=== PATIENT | female | born 1975 | race Hispanic/Latino ===

== ENCOUNTER 2025-06-09 14:51 | Emergency (ER) | payer SELFPAY ==
[~2025-06-09] VITALS: Ht 157.5 cm; Wt 95.8 kg
[2025-06-09] MEDS ORDERED: ATENOLOL50 MG PO (15:11)
[2025-06-09] MEDS ORDERED: HYDROCHLOROTHIA25 MG PO (15:11)
[2025-06-09] MEDS ORDERED: CITALOPRAM HBR20 MG PO (15:11)
[2025-06-09] MEDS ORDERED: CYCLOBENZAPRINE5 MG PO (17:08)
[2025-06-09 19:32] VITALS: PULSE 73; RESP 16; TEMP 98.2; O2SAT 97
== END 2025-06-09 19:32 | disposition home or self-care (01) ==
LOC: FSED 14:59
DX: R51.9 Headache, unspecified (principal); M54.9 Dorsalgia, unspecified; R07.89 Other chest pain; M25.512 Pain in left shoulder; V53.6XXA Passenger in pick-up truck or van injured in collision with car, pick-up truck or van in traffic accident, initial encounter; Y92.488 Other paved roadways as the place of occurrence of the external cause; M50.30 Other cervical disc degeneration, unspecified cervical region; M51.35 Other intervertebral disc degeneration, thoracolumbar region; I51.7 Cardiomegaly; I10 Essential (primary) hypertension; E11.9 Type 2 diabetes mellitus without complications
CPT/HCPCS: 70450; 71250; 72125; 74176; 99283